=== PATIENT | male | born 1975 | race Hispanic/Latino ===

== ENCOUNTER 2018-11-05 16:31 | Emergency (ER) | payer MEDICARE ==
[2018-11-05 16:50] VITALS: BP 131/92
[2018-11-05 17:09] LABS: Hematocrit 33.4 % (35.5-45.6); Mean Corpuscular HGB Conc 36 % (32-34); Mean Corpuscular Volume 95 fl (84-94); Platelet Count 248 K/mm3 (140-440); Red Blood Count 3.53 M/mm3 (3.65-5.03); Red Cell Distribution Width 13.1 % (13.2-15.2)
[2018-11-05 17:41] LABS: BUN/Creatinine Ratio 11; Blood Urea Nitrogen 8 mg/dL (9-20); Calcium 9.3 mg/dL (8.4-10.2); Hemolysis Index 4
[2018-11-05 19:14] LABS: Amphetamine Screen,Urine PRESUMPTIVE NEGATIVE; Benzodiazepines Screen,Urine PRESUMPTIVE NEGATIVE; Cocaine Screen,Urine PRESUMPTIVE NEGATIVE; Methadone Screen,Urine PRESUMPTIVE NEGATIVE; Opiate Screen,Urine PRESUMPTIVE NEGATIVE
[2018-11-05 19:19] LABS: Alanine Aminotransferase 35 units/L (7-56); Albumin 4.7 g/dL (3.9-5); BUN/Creatinine Ratio 13; Blood Urea Nitrogen 9 mg/dL (9-20); Calcium 9.6 mg/dL (8.4-10.2); Hemolysis Index 9
[2018-11-05 19:30] LABS: Bilirubin,Urine NEG (Negative); Blood,Urine NEG (Negative); Color,Urine Yellow (Yellow); Protein,Urine <15 mg/dL mg/dL (Negative)
--- NOTE | 2018-11-05 19:32 | Cat Scan Report ---
PROCEDURE: CT HEAD/BRAIN WO CON TECHNIQUE: Computerized tomography of the head was performed without contrast material. CT DOSE LENGTH PRODUCT: 805.4 mGycm HISTORY: poss.seizure COMPARISONS: Head CT dated October 29, 2018 . FINDINGS: There is no evidence of an acute intracranial process, intracranial hemorrhage or mass effect. The ventricles are normal size. The visualized portions of the orbits, paranasal and mastoid sinuses are unremarkable. There is no evidence of fracture. IMPRESSION: 1. No evidence of an acute intracranial process, intracranial hemorrhage or mass effect. If there is a clinical concern for an acute intracranial process, MRI brain may be helpful.. This document is electronically signed by Johana Pineda MD., Nov 05 2018 07:30:51 PM ET
[2018-11-05 19:35] LABS: Cannabinoid Screen,Urine PRESUMPTIVE POSITIVE
--- NOTE | 2018-11-05 19:43 | Emergency Department Report ---
ED Altered Mental Status HPI - General Chief Complaint: Seizure Stated Complaint: POSS SEIZURE Time Seen by Provider: 11/05/18 18:26 Source: patient, EMS Mode of arrival: Ambulatory Limitations: No Limitations - History of Present Illness Initial Comments: Pt is a 43 yo male who presents to the ED with c/o confusion that occurred this morning. The patient states that when he woke up this morning he was not sure where he was and felt confused. He states he had a dream he was in the hospital. The patient states he was at his house in his bed when he woke up. He called the ambulance due to his initial confusion. The patient states "he feels fine." he is alert to person, place, time. He denies any HARPER, vision changes, weakness, or numbness. He states initially this morning he felt some tingling in his feet which felt like "pins and needles" but that completely resolved. He has a PMHx of seizures and states he is not sure if he had a seizure. denies bowel/bladder incontinence. He states he has not been taking his seizure medications very often this week due to not having an appetite. He states his neurologist is at [facility]. he denies any other PMHx, or allergies to medications. - Related Data Home Medications Medication Instructions Recorded Confirmed Last Taken QUEtiapine [SEROquel] 200 mg PO QHS 10/28/18 10/30/18 10/28/18 lamoTRIgine [LaMICtal] 200 mg PO BID 10/28/18 10/30/18 10/29/18 levETIRAcetam [Keppra] 1,500 mg PO BID 10/28/18 10/30/18 10/29/18 Allergies Allergy/AdvReac Type Severity Reaction Status Date / Time No Known Allergies Allergy Unverified 10/28/18 14:48 ED Review of Systems ROS: Stated complaint: POSS SEIZURE Other details as noted in HPI Comment: All other systems reviewed and negative ED Past Medical Hx - Past Medical History Previous Medical History?: Yes Hx Seizures: Yes Additional medical history: TBI, Bipolar - Surgical History Past Surgical History?: Yes Additional Surgical History: Metal plate in head. titanium rods in legs - Social History Smoking Status: Never Smoker Substance Use Type: None - Medications Home Medications: Home Medications Medication Instructions Recorded Confirmed Last Taken Type QUEtiapine [SEROquel] 200 mg PO QHS 10/28/18 10/30/18 10/28/18 History lamoTRIgine [LaMICtal] 200 mg PO BID 10/28/18 10/30/18 10/29/18 History levETIRAcetam [Keppra] 1,500 mg PO BID 10/28/18 10/30/18 10/29/18 History ED Physical Exam - General Limitations: No Limitations General appearance: alert, in no apparent distress, cachectic - Head Head exam: Present: atraumatic, normocephalic - Eye Eye exam: Present: normal appearance, PERRL, EOMI - Respiratory Respiratory exam: Present: normal lung sounds bilaterally. Absent: respiratory distress, wheezes, rales, rhonchi, stridor, chest wall tenderness, accessory muscle use, decreased breath sounds, prolonged expiratory - Cardiovascular Cardiovascular Exam: Present: regular rate, normal rhythm, normal heart sounds. Absent: systolic murmur, diastolic murmur, rubs, gallop - Neurological Exam Neurological exam: Present: alert, oriented X3, CN II-XII intact, normal gait, other (normal heel to rios, normal finger to nose, 5/5 strength in the BUE/BLE, sensation intact, no focal neuro deficit). Absent: motor sensory deficit - Psychiatric Psychiatric exam: Present: normal affect, normal mood - Skin Skin exam: Present: warm, dry, intact ED Course Vital Signs 11/05/18 11/05/18 16:46 22:31 Temperature 98.2 F Pulse Rate 78 87 Respiratory 16 17 Rate Blood Pressure 131/92 O2 Sat by Pulse 98 100 Oximetry - Consultations Consultation #1: 11/05/18 21:[address] lang regarding pt and results and advised to load with 1 gram of keppra and have pt follow up with his neurologist [facility]. - Lab Data Result diagrams: 11/05/18 16:54 11/05/18 18:30 Lab Results 11/05/18 11/05/18 11/05/18 Range/Units 16:54 16:54 18:30 WBC 9.6 (4.5-11.0) K/mm3 RBC 3.53 L (3.65-5.03) M/mm3 Hgb 12.0 (11.8-15.2) gm/dl Hct 33.4 L (35.5-45.6) % MCV 95 H (84-94) fl MCH 34 H (28-32) pg MCHC 36 H (32-34) % RDW 13.1 L (13.2-15.2) % Plt Count 248 (140-440) K/mm3 Sodium 139 140 (137-145) mmol/L Potassium 3.2 L 3.2 L (3.6-5.0) mmol/L Chloride 94.9 L 93.7 L (98-107) mmol/L Carbon Dioxide 34 H 34 H (22-30) mmol/L Anion Gap 13 16 mmol/L BUN 8 L 9 (9-20) mg/dL Creatinine 0.7 L 0.7 L (0.8-1.5) mg/dL Estimated GFR > 60 > 60 ml/min BUN/Creatinine Ratio 11 13 % Glucose 110 H 92 (75-100) mg/dL Calcium 9.3 9.6 (8.4-10.2) mg/dL Phosphorus 3.80 (2.5-4.5) mg/dL Magnesium 2.00 (1.7-2.3) mg/dL Total Bilirubin < 0.20 (0.1-1.2) mg/dL AST 30 (5-40) units/L ALT 35 (7-56) units/L Alkaline Phosphatase 96 (35-129) units/L Total Protein 7.5 (6.3-8.2) g/dL Albumin 4.7 (3.9-5) g/dL Albumin/Globulin Ratio 1.7 % Urine Color (Yellow) Urine Turbidity (Clear) Urine pH (5.0-7.0) Ur Specific Gustine (1.003-1.030) Urine Protein (Negative) mg/dL Urine Glucose (UA) (Negative) mg/dL Urine Ketones (Negative) mg/dL Urine Blood (Negative) Urine Nitrite (Negative) Urine Bilirubin (Negative) Urine Urobilinogen (<2.0) mg/dL Ur Leukocyte Esterase (Negative) Urine WBC (Auto) (0.0-6.0) /HPF Urine RBC (Auto) (0.0-6.0) /HPF Urine WBC Clumps /HPF Urine Yeast (Budding) /HPF Urine Opiates Screen Urine Methadone Screen Acetaminophen (10.0-30.0) ug/mL Ur Barbiturates Screen Ur Phencyclidine Scrn Ur Amphetamines Screen U Benzodiazepines Scrn Urine Cocaine Screen U Marijuana (THC) Screen Drugs of Abuse Note Plasma/Serum Alcohol (0-0.07) % 11/05/18 11/05/18 11/05/18 Range/Units 18:30 18:30 18:37 WBC (4.5-11.0) K/mm3 RBC (3.65-5.03) M/mm3 Hgb (11.8-15.2) gm/dl Hct (35.5-45.6) % MCV (84-94) fl MCH (28-32) pg MCHC (32-34) % RDW (13.2-15.2) % Plt Count (140-440) K/mm3 Sodium (137-145) mmol/L Potassium (3.6-5.0) mmol/L Chloride (98-107) mmol/L Carbon Dioxide (22-30) mmol/L Anion Gap mmol/L BUN (9-20) mg/dL Creatinine (0.8-1.5) mg/dL Estimated GFR ml/min BUN/Creatinine Ratio % Glucose (75-100) mg/dL Calcium (8.4-10.2) mg/dL Phosphorus (2.5-4.5) mg/dL Magnesium (1.7-2.3) mg/dL Total Bilirubin (0.1-1.2) mg/dL AST (5-40) units/L ALT (7-56) units/L Alkaline Phosphatase (35-129) units/L Total Protein (6.3-8.2) g/dL Albumin (3.9-5) g/dL Albumin/Globulin Ratio % Urine Color (Yellow) Urine Turbidity (Clear) Urine pH (5.0-7.0) Ur Specific Gustine (1.003-1.030) Urine Protein (Negative) mg/dL Urine Glucose (UA) (Negative) mg/dL Urine Ketones (Negative) mg/dL Urine Blood (Negative) Urine Nitrite (Negative) Urine Bilirubin (Negative) Urine Urobilinogen (<2.0) mg/dL Ur Leukocyte Esterase (Negative) Urine WBC (Auto) (0.0-6.0) /HPF Urine RBC (Auto) (0.0-6.0) /HPF Urine WBC Clumps /HPF Urine Yeast (Budding) /HPF Urine Opiates Screen Presumptive negative Urine Methadone Screen Presumptive negative Acetaminophen < 5.0 L (10.0-30.0) ug/mL Ur Barbiturates Screen Presumptive negative Ur Phencyclidine Scrn Presumptive negative Ur Amphetamines Screen Presumptive negative U Benzodiazepines Scrn Presumptive negative Urine Cocaine Screen Presumptive negative U Marijuana (THC) Screen Presumptive positive Drugs of Abuse Note Disclamer Plasma/Serum Alcohol < 0.01 (0-0.07) % 11/05/18 Range/Units 18:37 WBC (4.5-11.0) K/mm3 RBC (3.65-5.03) M/mm3 Hgb (11.8-15.2) gm/dl Hct (35.5-45.6) % MCV (84-94) fl MCH (28-32) pg MCHC (32-34) % RDW (13.2-15.2) % Plt Count (140-440) K/mm3 Sodium (137-145) mmol/L Potassium (3.6-5.0) mmol/L Chloride (98-107) mmol/L Carbon Dioxide (22-30) mmol/L Anion Gap mmol/L BUN (9-20) mg/dL Creatinine (0.8-1.5) mg/dL Estimated GFR ml/min BUN/Creatinine Ratio % Glucose (75-100) mg/dL Calcium (8.4-10.2) mg/dL Phosphorus (2.5-4.5) mg/dL Magnesium (1.7-2.3) mg/dL Total Bilirubin (0.1-1.2) mg/dL AST (5-40) units/L ALT (7-56) units/L Alkaline Phosphatase (35-129) units/L Total Protein (6.3-8.2) g/dL Albumin (3.9-5) g/dL Albumin/Globulin Ratio % Urine Color Yellow (Yellow) Urine Turbidity Turbid (Clear) Urine pH 8.0 H (5.0-7.0) Ur Specific Gustine 1.011 (1.003-1.030) Urine Protein <15 mg/dl (Negative) mg/dL Urine Glucose (UA) Neg (Negative) mg/dL Urine Ketones Neg (Negative) mg/dL Urine Blood Neg (Negative) Urine Nitrite Neg (Negative) Urine Bilirubin Neg (Negative) Urine Urobilinogen 2.0 (<2.0) mg/dL Ur Leukocyte Esterase Neg (Negative) Urine WBC (Auto) 27.0 H (0.0-6.0) /HPF Urine RBC (Auto) 2.0 (0.0-6.0) /HPF Urine WBC Clumps 3+ /HPF Urine Yeast (Budding) 3+ /HPF Urine Opiates Screen Urine Methadone Screen Acetaminophen (10.0-30.0) ug/mL Ur Barbiturates Screen Ur Phencyclidine Scrn Ur Amphetamines Screen U Benzodiazepines Scrn Urine Cocaine Screen U Marijuana (THC) Screen Drugs of Abuse Note Plasma/Serum Alcohol (0-0.07) % - EKG Data EKG shows normal: sinus rhythm, axis, intervals, QRS complexes, ST-T waves Rate: normal - Radiology Data Radiology results: report reviewed PROCEDURE: CT HEAD/BRAIN WO CON TECHNIQUE: Computerized tomography of the head was performed without contrast material. CT DOSE LENGTH PRODUCT: 805.4 mGycm HISTORY: poss.seizure COMPARISONS: Head CT dated October 29, 2018 . FINDINGS: There is no evidence of an acute intracranial process, intracranial hemorrhage or mass effect. The ventricles are normal size. The visualized portions of the orbits, paranasal and mastoid sinuses are unremarkable. There is no evidence of fracture. IMPRESSION: 1. No evidence of an acute intracranial process, intracranial hemorrhage or mass effect. If there is a clinical concern for an acute intracranial process, MRI brain may be helpful.. This document is electronically signed by Johana Pineda MD., Nov 05 2018 07:30:51 PM ET - Medical Decision Making Pt is a 43 yo male who presents to the ED with c/o confusion that occurred this morning. The patient states that when he woke up this morning he was not sure where he was and felt confused. He states he had a dream he was in the hospital. The patient states he was at his house in his bed when he woke up. He called the ambulance due to his initial confusion. The patient states "he feels fine." he is alert to person, place, time. He denies any HARPER, vision changes, weakness, or numbness. He states initially this morning he felt some tingling in his feet which felt like "pins and needles" but that completely resolved. He has a PMHx of seizures and states he is not sure if he had a seizure. denies bowel/bladder incontinence. He states he has not been taking his seizure medications very often this week due to not having an appetite. He states his neurologist is at [facility]. he denies any other PMHx, or allergies to medications. CT head with no acute process. no neuro deficits on examination. labs show hypokalemia otherwise stable, pt given 40 meq of kdur and 1L of IVF. UA shows WBCs with no leukocyte esterase or nitrites, most likely from a non clean catch urine, discussed with pt if he began to have sx then to return to the ED or be seen by PCP. keppra level sent. pt loaded with 1g of keppra per Dr. Busby recommendation. advised pt to follow up with his neurologist at [facility]. return to the emergency room immediately for any new or worsening symptoms. Critical care attestation.: If time is entered above; I have spent that time in minutes in the direct care of this critically ill patient, excluding procedure time. ED Disposition Clinical Impression: Seizure disorder, Hypokalemia Altered mental status Qualifiers: Altered mental status type: unspecified Qualified Code(s): R41.82 - Altered mental status, unspecified Disposition: DC-01 TO HOME OR SELFCARE Is pt being admited?: No Does the pt Need Aspirin: No Condition: Stable Instructions: Hypokalemia (ED), Altered Mental Status (ED), Recurrent Seizures Adult (ED) Additional Instructions: Please take all medications that you are prescribed. Please eat a well balanced diet. Please follow up with your neurologist at [facility] as soon as possible for further evaluation. please follow up with a primary care doctor in the next 2-3 days. return to the emergency room for any new or worsening symptoms. Referrals: NIKOS SCHULTZ MD [Primary Care Provider] - 2-3 Days [facility], neurology [Other] - [facility] Forms: Accompanied Note, Work/School Release Form(ED) Time of Disposition: 21:23 Print Language: SWEDISH
[2018-11-05] MEDS ORDERED: NACL 0.9% 1000 ML 1,000 ML IV ONE (20:31)
[2018-11-05] MEDS ORDERED: K-DUR PO ONE (20:32)
[2018-11-05] MEDS ORDERED: KEPPRA 1,000 MG/NS 0.75% 100ML 1,000 MG/100 ML BAG IV ONE (21:00)
[2018-11-06] MEDS ORDERED: KEPPRA 1,000 MG in D5W 100 ML IV SCH (10:00)
[2018-11-06] MEDS ORDERED: KEPPRA 1,000 MG in D5W 100 ML IV ONE (20:43)
== END 2018-11-05 22:31 | disposition home or self-care (01) ==
LOC: ED 16:31
DX: G40.909 Epilepsy, unspecified, not intractable, without status epilepticus (principal); R41.82 Altered mental status, unspecified; E87.6 Hypokalemia; F31.9 Bipolar disorder, unspecified
CPT/HCPCS: 36415; 70450; 80048; 80053; 80177; 80307; 81001; 82693; 83735; 84100; 85027; 93005; 93010; 96365; 99285; G0480; J1953; J7030; 80320